=== PATIENT | female | born 1960 | race Caucasian/White ===

== ENCOUNTER 2017-11-06 06:59 | Emergency (ER) | payer OTHER ==
[~2017-11-06] VITALS: Ht 170.2 cm; Wt 99.8 kg
[~2017-11-06 06:59] MED LIST: FLEXERIL PO; HYDROCHLOROTHIA25 M2 PO; IMDUR 30 MG TAB30 M1 PO; LEVOTHYROXIN0.125 M1 PO; PERCOCET PO
[2017-11-06] MEDS ORDERED: NORCO 5-325 TA1 EACH PO (07:54)
[2017-11-06] MEDS ORDERED: KEFLEX500 M1 PO (07:54)
[2017-11-06 08:41] VITALS: BP 126/80
== END 2017-11-06 08:44 | disposition home or self-care (01) ==
LOC: M.ERS 06:59
DX: S61.212A Laceration without foreign body of right middle finger without damage to nail, initial encounter (principal); I10 Essential (primary) hypertension; E03.9 Hypothyroidism, unspecified; Z91.041 Radiographic dye allergy status; Z88.2 Allergy status to sulfonamides; Z77.22 Contact with and (suspected) exposure to environmental tobacco smoke (acute) (chronic); W27.0XXA Contact with workbench tool, initial encounter; Y93.89 Activity, other specified; Y92.89 Other specified places as the place of occurrence of the external cause; Y99.8 Other external cause status